=== PATIENT | male | born 1985 | race Hispanic/Latino ===

== ENCOUNTER 2017-05-20 10:12 | Emergency (ER) | payer SELFPAY | END 2017-05-20 11:17 | disposition home or self-care (01) | LOC: EDH 10:12 | DX: S02.5XXA Fracture of tooth (traumatic), initial encounter for closed fracture (principal); Z72.0 Tobacco use; Z90.49 Acquired absence of other specified parts of digestive tract; X58.XXXA Exposure to other specified factors, initial encounter; Y93.89 Activity, other specified; Y92.89 Other specified places as the place of occurrence of the external cause; Y99.8 Other external cause status | CPT/HCPCS: 99281 ==